=== PATIENT | male | born 1985 | race Caucasian/White ===

== ENCOUNTER 2016-11-09 23:35 | Emergency (ER) | payer OTHER | END 2016-11-10 02:48 | disposition home or self-care (01) | LOC: ER1 23:35 | DX: J20.9 Acute bronchitis, unspecified (principal); J06.9 Acute upper respiratory infection, unspecified; F17.200 Nicotine dependence, unspecified, uncomplicated | CPT/HCPCS: 99283 ==

== ENCOUNTER 2017-02-01 | Emergency (ER) | payer OTHER | END 2017-02-01 01:37 | disposition left against medical advice (07) | LOC: ER1 | DX: Z53.21 Procedure and treatment not carried out due to patient leaving prior to being seen by health care provider (principal) ==